=== PATIENT | male | born 1965 | race Hispanic/Latino ===

== ENCOUNTER 2017-05-10 13:52 | Emergency (ER) | payer MEDICAID ==
[2017-05-10 14:30] LABS: BASO # 0.1 K/uL (0.0-0.2); BASO % 0.8 % (0.0-2.0); EOS # 0.2 K/uL (0.0-0.7); EOS % 3.1 % (0.0-4.0); HEMATOCRIT 43.1 % (35.0-51.0); LYMPH # 1.4 K/uL (1.0-4.3); LYMPH % 21.3 % (20.0-40.0); MEAN CORPUSCULAR HEMOGLOBIN 29.3 pg (27.0-31.0); MEAN CORPUSCULAR HGB CONC 34.5 g/dL (33.0-37.0); MEAN PLATELET VOLUME 6.9 fl (7.2-11.7); MONO # 0.4 K/uL (0.0-0.8); MONO % 6.1 % (0.0-10.0); NEUT # 4.5 K/uL (1.8-7.0); NEUT % 68.7 % (50.0-75.0); NRBC % 0.2 % (0.0-0.0); RED CELL DISTRIBUTION WIDTH 14.1 % (11.5-14.5); WHITE BLOOD COUNT 6.6 K/uL (4.8-10.8)
[2017-05-10 14:36] LABS: ALB/GLOB RATIO 1.8 (1.0-2.1); ALKALINE PHOSPHATASE 78 U/L (38-126); ALT/SGPT 38 U/L (21-72); AST/SGOT 25 U/L (17-59); BILIRUBIN,TOTAL 1.3 mg/dl (0.2-1.3); BLOOD UREA NITROGEN 15 mg/dl (9-20); CALCIUM 9.3 mg/dL (8.4-10.2); CARBON DIOXIDE 23 mmol/L (22-30); CHLORIDE 100 mmol/L (98-107); CHOLESTEROL 72 mg/dL (0-199); GFR AFRICAN-AMERICAN > 60; GLUCOSE,RANDOM 155 mg/dL (75-110); SODIUM 139 mmol/l (132-148); TOTAL PROTEIN 6.8 G/DL (6.3-8.2)
[2017-05-10 15:08] LABS: PARTIAL THROMBOPLASTIN TIME 30.3 Seconds (25.6-37.1)
[2017-05-10 15:31] VITALS: BP 135/76; PULSE 85; RESP 18; TEMP 97.8; O2SAT 97
== END 2017-05-10 15:21 | disposition home or self-care (01) ==
LOC: H.ER 13:52
DX: R53.1 Weakness (principal); Z76.5 Malingerer [conscious simulation]

== ENCOUNTER 2017-05-10 16:31 | Emergency (ER) | payer MEDICAID ==
[2017-05-10 16:38] VITALS: BP 159/93; PULSE 83; RESP 16; TEMP 98.5; O2SAT 97
== END 2017-05-10 17:00 | disposition home or self-care (01) ==
LOC: H.ER 16:31
DX: Z76.5 Malingerer [conscious simulation] (principal)